=== PATIENT | female | born 1970 | race Two or more races ===

== ENCOUNTER 2018-08-02 11:04 | Emergency (ER) | payer OTHER, MEDICAID ==
[~2018-08-02] VITALS: Ht 162.6 cm; Wt 68.0 kg
[2018-08-02] MEDS ORDERED: SODIUM CHLORIDE 0.9% 1,000 ML IV ONE (11:39)
[2018-08-02] MEDS ORDERED: MORPHINE SULFATE 4 MG/ML CPJ (NOT FOR IM USE) IV STA (11:39)
[2018-08-02] MEDS ORDERED: ONDANSETRON HCL 4MG/2ML INJ IV STA (11:39)
[2018-08-02 12:00] LABS: HEMATOCRIT. 35.8 % (36.0-48.0); HEMOGLOBIN. 11.3 g/dL (12.0-16.0); MEAN CORPUSCULAR HEMOGLOBIN 28.4 pg (28.0-32.0); MEAN CORPUSCULAR VOLUME 90.3 fL (81.0-99.0); MEAN PLATELET VOLUME 8.6 fl (7.4-10.4); PLATELET 223 x1000/uL (130-400); RED BLOOD CELL COUNT 3.97 mill/uL (4.2-5.4); RED CELL DISTRIBUTION WIDTH 17.8 % (11.6-14.6)
[2018-08-02 12:06] LABS: CHLORIDE 93 mEq/L (98-107)
[2018-08-02 12:14] LABS: INR 1.8; PROTHROMBIN TIME 18.4 sec (9.6-11.0)
[2018-08-02 12:26] LABS: PLATELET ESTIMATE NORMAL
[2018-08-02] MEDS ORDERED: ONDANSETRON HCL 4MG/2ML INJ IV ONE (13:45)
[2018-08-02] MEDS ORDERED: MORPHINE SULFATE 4 MG/ML CPJ (NOT FOR IM USE) IV ONE (15:15)
[2018-08-02] MEDS ORDERED: METOCLOPRAMIDE HCL 10MG/2ML VIAL IV ONE (15:15)
[2018-08-02 16:09] VITALS: BP 155/86
== END 2018-08-02 16:12 | disposition home or self-care (01) ==
LOC: ER 11:04 → CANBEDREQ 19:02
DX: E11.22 Type 2 diabetes mellitus with diabetic chronic kidney disease (principal); N18.6 End stage renal disease; R55 Syncope and collapse; Z99.2 Dependence on renal dialysis
CPT/HCPCS: 36415; 71045; 74176; 80053; 82962; 83690; 83880; 84484; 85025; 85610; 93005; 96361; 96374; 96375; 96376; 99284; J2270; J2405; J2765; J7030

== ENCOUNTER 2018-08-06 11:37 | Emergency (ER) | payer OTHER, MEDICAID ==
[~2018-08-06] VITALS: Ht 165.1 cm; Wt 80.0 kg
[2018-08-06] MEDS ORDERED: ONDANSETRON HCL 4MG/2ML INJ IV STA (12:26)
[2018-08-06] MEDS ORDERED: MORPHINE SULFATE 4 MG/ML CPJ (NOT FOR IM USE) IV STA (12:26)
[2018-08-06 13:15] LABS: HEMATOCRIT. 39.6 % (36.0-48.0); HEMOGLOBIN. 12.4 g/dL (12.0-16.0); MEAN CORPUSCULAR HEMOGLOBIN 28.5 pg (28.0-32.0); MEAN PLATELET VOLUME 8.4 fl (7.4-10.4); PLATELET 188 x1000/uL (130-400); RED BLOOD CELL COUNT 4.34 mill/uL (4.2-5.4); RED CELL DISTRIBUTION WIDTH 18.4 % (11.6-14.6)
[2018-08-06 13:21] LABS: CHLORIDE 98 mEq/L (98-107)
[2018-08-06 13:24] LABS: INR 1.5; PARTIAL THROMBOPLASTIN TIME 24.3 sec (23.4-31.0); PROTHROMBIN TIME 15.6 sec (9.6-11.0)
[2018-08-06 13:39] LABS: PLATELET ESTIMATE NORMAL
[2018-08-06] MEDS ORDERED: LORAZEPAM 2MG/ML CPJ IV ONE (13:45)
[2018-08-06 14:35] LABS: HCG SCREEN NEGATIVE
[2018-08-06 15:53] LABS: CLARITY URINE CLOUDY (CLEAR); COLOR URINE DARK YELLOW (YELLOW); KETONES URINE TRACE (NEGATIVE); LEUKOCYTE ESTERASE URINE NEGATIVE (NEGATIVE); NITRITE URINE NEGATIVE (NEGATIVE); OCCULT BLOOD URINE 1+ (NEGATIVE); PROTEIN URINE 4+ (NEGATIVE); SPECIFIC GRAVITY URINE 1.024 (1.005-1.030)
[2018-08-06] MEDS ORDERED: ASPIRIN 325MG EC TABLET PO ONE (17:00)
[2018-08-06 21:26] VITALS: BP 155/80
== END 2018-08-06 20:43 | disposition short-term general hospital (02) ==
LOC: ER 11:37 → CANBEDREQ 18:23 → ER 20:43
DX: R55 Syncope and collapse (principal); R10.0 Acute abdomen; F41.9 Anxiety disorder, unspecified; K86.1 Other chronic pancreatitis; R18.8 Other ascites; N64.89 Other specified disorders of breast; I51.7 Cardiomegaly; E11.22 Type 2 diabetes mellitus with diabetic chronic kidney disease; N18.6 End stage renal disease; Z99.2 Dependence on renal dialysis; Z79.84 Long term (current) use of oral hypoglycemic drugs
CPT/HCPCS: 36415; 71045; 74176; 80053; 81003; 82962; 83690; 83880; 84484; 84703; 85025; 85610; 85730; 87086; 93005; 96374; 96375; 99285; J2060; J2270; J2405